=== PATIENT | female | born 1995 | race African-American/Black ===

== ENCOUNTER 2018-06-15 20:00 | Emergency (ER) | payer BC, OTHER ==
[~2018-06-15] VITALS: Ht 162.6 cm; Wt 113.4 kg
[2018-06-15 20:20] VITALS: BP 147/77
[2018-06-15] MEDS ORDERED: SULF1TAB24 PO (20:46)
--- NOTE | 2018-06-15 20:46 | PHYS DOC ---
Past Medical History Past Medical History: No Pertinent History Past Surgical History: No Surgical History Alcohol Use: None Drug Use: None Adult General Chief Complaint Chief Complaint: VAGINAL PROBLEM HPI HPI Patient is a 23 year old female who presents with a painful bump on her labia. She states that she noticed a few days ago and it has gradually worsened. She denies fever, nausea or vomiting. She denies drainage. Review of Systems Review of Systems Constitutional: Denies fever or chills [] Respiratory: Denies cough or shortness of breath [] Cardiovascular: No additional information not addressed in HPI [] GI: Denies abdominal pain, nausea, vomiting, bloody stools or diarrhea [] : Denies dysuria or hematuria [] Musculoskeletal: Denies back pain or joint pain [] Integument: See history of present illness Neurologic: Denies headache, focal weakness or sensory changes [] Endocrine: Denies polyuria or polydipsia [] All other systems were reviewed and found to be within normal limits, except as documented in this note. Allergies Allergies Allergies Coded Allergies Type Severity Reaction Last Updated Verified No Known Drug Allergies 05/06/14 No Physical Exam Physical Exam Constitutional: Well developed, well nourished, no acute distress, non-toxic appearance. [] Cardiovascular:Heart rate regular rhythm, no murmur [] Lungs & Thorax: Bilateral breath sounds clear to auscultation [] Abdomen: Bowel sounds normal, soft, no tenderness, no masses, no pulsatile masses. [] Skin: Warm, dry, no erythema, no rash. [] Back: No tenderness, no CVA tenderness. [] Extremities: No tenderness, no cyanosis, no clubbing, ROM intact, no edema. [] Neurologic: Alert and oriented X 3, normal motor function, normal sensory function, no focal deficits noted. [] Psychologic: Affect normal, judgement normal, mood normal. [] : There is a pea-sized abscess noted to the right labia with induration but no fluctuance Current Patient Data Vital Signs Vital Signs Date Time Temp Pulse Resp B/P (MAP) Pulse Ox O2 Delivery O2 Flow Rate FiO2 06/15/18 20:20 98.2 16 16 147/77 (100) 99 Room Air 98.2 EKG EKG [] Radiology/Procedures Radiology/Procedures [] Course & Med Decision Making Course & Med Decision Making Pertinent Labs and Imaging studies reviewed. (See chart for details) [] Dragon Disclaimer Dragon Disclaimer This electronic medical record was generated, in whole or in part, using a voice recognition dictation system. Departure Departure Impression: Primary Impression: Abscess Disposition: 01 HOME, SELF-CARE Condition: STABLE Referrals: ROBY LEARY (PCP) Patient Instructions: Abscess Additional Instructions: Take the medication as prescribed. Follow-up with your primary care provider or padder cushion for a recheck in 4 days if not improving or return to the emergency department if worsening. Scripts Sulfamethoxazole/Trimethoprim (BACTRIM DS TABLET) 1 Each Tablet 1 TAB PO BID for abscess, #20 TAB Prov: CHRISTIANE HOLM APRN 06/15/18 CHRISTIANE HOLM APRN Jun 15, 2018 20:46
== END 2018-06-15 21:04 | disposition home or self-care (01) ==
LOC: ER 20:00
DX: N76.0 Acute vaginitis (principal)
CPT/HCPCS: 99283

== ENCOUNTER 2019-03-12 23:16 | Emergency (ER) | payer BC ==
[~2019-03-12] VITALS: Ht 165.1 cm; Wt 136.1 kg
[~2019-03-12 23:16] MED LIST: SULF1TAB24 PO
[2019-03-13 00:15] LABS: BASO # 0.1 x10^3/uL (0.0-0.2); BASO % 1 % (0-3); EOS # 0.1 x10^3/uL (0.0-0.7); EOS % 1 % (0-3); HEMATOCRIT 34.5 % (36.0-47.0); HEMOGLOBIN 10.8 g/dL (12.0-15.5); LYMPH # 2.4 x10^3/uL (1.0-4.8); LYMPH % 31 % (24-48); MEAN CORPUSCULAR HEMOGLOBIN 22 pg (25-35); MEAN CORPUSCULAR HGB CONC 31 g/dL (31-37); MEAN CORPUSCULAR VOLUME 69 fL (79-100); MONO # 0.5 x10^3/uL (0.0-1.1); MONO % 7 % (0-9); NEUT # 4.7 x10^3/uL (1.8-7.7); NEUT % 61 % (31-73); PLATELET COUNT 312 x10^3/uL (140-400); RED BLOOD COUNT 4.98 x10^6/uL (3.50-5.40); RED CELL DISTRIBUTION WIDTH 20.3 % (11.5-14.5); WHITE BLOOD COUNT 7.7 x10^3/uL (4.0-11.0)
[2019-03-13 00:28] LABS: CALCIUM 9.1 mg/dL (8.5-10.1); CREATININE 0.9 mg/dL (0.6-1.0); GFR 93.9; POTASSIUM 3.9 mmol/L (3.5-5.1)
[2019-03-13] MEDS ORDERED: fentaNYL PF VIAL 100 MCG/2 ML VIAL IVP ONE (00:30)
[2019-03-13 00:33] LABS: PROTHROMBIN TIME PATIENT 13.1 SEC (11.7-14.0)
[2019-03-13 00:35] LABS: ALBUMIN 3.6 g/dL (3.4-5.0); ALBUMIN/GLOBULIN RATIO 0.8 (1.0-1.7); TOTAL BILIRUBIN 0.2 mg/dL (0.2-1.0); TOTAL PROTEIN 8.4 g/dL (6.4-8.2)
[2019-03-13 00:37] LABS: D-DIMER 0.43 ug/mlFEU (0.00-0.50)
[2019-03-13 00:59] LABS: ANISOCYTOSIS MOD; HYPOCHROMIA MOD; MICROCYTOSIS MARKED
[2019-03-13 01:00] LABS: PLT ESTIMATE ADEQUATE (ADEQUATE)
[2019-03-13 01:24] LABS: BILIRUBIN,URINE NEGATIVE (NEG); CLARITY,URINE CLEAR; COLOR,URINE YELLOW; NITRITE,URINE NEGATIVE (NEG); PROTEIN,URINE NEGATIVE (NEG-TRACE); UROBILINOGEN,URINE 0.2 mg/dL (0.2 mg/dL)
[2019-03-13 01:45] VITALS: BP 134/88
[2019-03-13 01:52] LABS: SQUAMOUS EPITHELIAL CELL,UR MANY /LPF
[2019-03-13 01:53] LABS: AMORPHOUS SEDIMENT,UR PRESENT /HPF; BACTERIA,URINE MODERATE /HPF (0-FEW); WBC,URINE 20-40 /HPF (0-4)
[2019-03-13] MEDS ORDERED: SULF1TAB24 PO (01:56)
--- NOTE | 2019-03-13 02:00 | PHYS DOC ---
Past Medical History Past Medical History: No Pertinent History Past Surgical History: No Surgical History Alcohol Use: None Drug Use: None Adult General Chief Complaint Chief Complaint: BACK PAIN OR INJURY HPI HPI Patient is a 23 year old f with left upper back pain onset while shopping with mom sharp near left scapula hurts to twist move and breathe no trauma no abdo pain no fever has not tried anything for relief. Review of Systems Review of Systems Constitutional: Denies fever or chills [] Eyes: Denies change in visual acuity, redness, or eye pain [] HENT: Denies nasal congestion or sore throat [] Respiratory: Denies cough or shortness of breath [] Cardiovascular: No additional information not addressed in HPI [] Neurologic: Denies headache, focal weakness or sensory changes [] Endocrine: Denies polyuria or polydipsia [] All other systems were reviewed and found to be within normal limits, except as documented in this note. Current Medications Current Medications Current Medications Medications (Trade) Dose Ordered Sig/Jimmie Start Time Stop Time Status Last Admin Dose Admin Fentanyl Citrate (Fentanyl 2ml Vial) 50 mcg 1X ONCE 03/13/19 00:30 03/13/19 00:31 DC 03/13/19 00:15 50 MCG Allergies Allergies Allergies Coded Allergies Type Severity Reaction Last Updated Verified No Known Drug Allergies 05/06/14 No Physical Exam Physical Exam Constitutional: Well developed, obese, no acute distress, non-toxic appearance. [] HENT: Normocephalic, atraumatic, bilateral external ears normal, oropharynx moist, no oral exudates, nose normal. [] Eyes: PERRLA, EOMI, conjunctiva normal, no discharge. [] Neck: Normal range of motion, no tenderness, supple, no stridor. [] Cardiovascular:Heart rate regular rhythm, no murmur [] hr 100 on my eval no murmur Lungs & Thorax: Bilateral breath sounds clear to auscultation [] Abdomen: Bowel sounds normal, soft, no tenderness, no masses, no pulsatile ma sses. [] Skin: Warm, dry, no erythema, no rash. [] Back: reproducible ttp noted on the left upper back. Extremities: No tenderness, no cyanosis, no clubbing, ROM intact, no edema. [] Neurologic: Alert and oriented X 3, normal motor function, normal sensory function, no focal deficits noted. [] Psychologic: Affect normal, judgement normal, mood normal. [] Current Patient Data Vital Signs Vital Signs Date Time Temp Pulse Resp B/P (MAP) Pulse Ox O2 Delivery O2 Flow Rate FiO2 03/13/19 00:15 Room Air 03/12/19 23:19 98.1 125 14 199/97 (131) 98 98.1 Lab Values Laboratory Tests Test 03/13/19 00:03 03/13/19 01:15 White Blood Count 7.7 x10^3/uL (4.0-11.0) Red Blood Count 4.98 x10^6/uL (3.50-5.40) Hemoglobin 10.8 g/dL (12.0-15.5) L Hematocrit 34.5 % (36.0-47.0) L Mean Corpuscular Volume 69 fL (79-100) L Mean Corpuscular Hemoglobin 22 pg (25-35) L Mean Corpuscular Hemoglobin Concent 31 g/dL (31-37) Red Cell Distribution Width 20.3 % (11.5-14.5) H Platelet Count 312 x10^3/uL (140-400) Neutrophils (%) (Auto) 61 % (31-73) Lymphocytes (%) (Auto) 31 % (24-48) Monocytes (%) (Auto) 7 % (0-9) Eosinophils (%) (Auto) 1 % (0-3) Basophils (%) (Auto) 1 % (0-3) Neutrophils # (Auto) 4.7 x10^3/uL (1.8-7.7) Lymphocytes # (Auto) 2.4 x10^3/uL (1.0-4.8) Monocytes # (Auto) 0.5 x10^3/uL (0.0-1.1) Eosinophils # (Auto) 0.1 x10^3/uL (0.0-0.7) Basophils # (Auto) 0.1 x10^3/uL (0.0-0.2) Platelet Estimate Adequate (ADEQUATE) Hypochromasia Mod Anisocytosis Mod Microcytosis Marked Prothrombin Time 13.1 SEC (11.7-14.0) Prothrombin Time INR 1.0 (0.8-1.1) D-Dimer (Estelle) 0.43 ug/mlFEU (0.00-0.50) Maternal Serum HCG Beta Subunit < 1 mIU/mL (0-5) Sodium Level 140 mmol/L (136-145) Potassium Level 3.9 mmol/L (3.5-5.1) Chloride Level 104 mmol/L (98-107) Carbon Dioxide Level 28 mmol/L (21-32) Anion Gap 8 (6-14) Blood Urea Nitrogen 11 mg/dL (7-20) Creatinine 0.9 mg/dL (0.6-1.0) Estimated GFR (Cockcroft-Gault) 93.9 BUN/Creatinine Ratio 12 (6-20) Glucose Level 99 mg/dL (70-99) Calcium Level 9.1 mg/dL (8.5-10.1) Total Bilirubin 0.2 mg/dL (0.2-1.0) Aspartate Amino Transferase (AST) 21 U/L (15-37) Alanine Aminotransferase (ALT) 37 U/L (14-59) Alkaline Phosphatase 98 U/L (46-116) Troponin I Quantitative < 0.017 ng/mL (0.000-0.055) Total Protein 8.4 g/dL (6.4-8.2) H Albumin 3.6 g/dL (3.4-5.0) Albumin/Globulin Ratio 0.8 (1.0-1.7) L Urine Collection Type Unknown Urine Color Yellow Urine Clarity Clear Urine pH 6.0 Urine Specific [place] 1.015 Urine Protein Negative mg/dL (NEG-TRACE) Urine Glucose (UA) Negative mg/dL (NEG) Urine Ketones (Stick) Negative mg/dL (NEG) Urine Blood Large (NEG) Urine Nitrite Negative (NEG) Urine Bilirubin Negative (NEG) Urine Urobilinogen Dipstick 0.2 mg/dL (0.2 mg/dL) Urine Leukocyte Esterase Small (NEG) Urine RBC 11-20 /HPF (0-2) Urine WBC 20-40 /HPF (0-4) Urine Squamous Epithelial Cells Many /LPF Urine Amorphous Sediment Present /HPF Urine Bacteria Moderate /HPF (0-FEW) Urine Mucus Slight /LPF Laboratory Tests 03/13/19 00:03 Laboratory Tests 03/13/19 00:03 EKG EKG nsr rate 81 poor baseline i believe it is sinus no stemi[] Radiology/Procedures Radiology/Procedures [] Impressions: my interp of cxr was neg acute Course & Med Decision Making Course & Med Decision Making Pertinent Labs and Imaging studies reviewed. (See chart for details) []ddimer neg reproducible upper back neg initial tachy and hypertension improved significantly when she calmed down (hx of anxiety per mom) u/a positigve will treat although pain is higher than kidneys so not sure that this is causing acute symptoms. return prec discussed pt voiced understanding. Dragon Disclaimer Dragon Disclaimer This electronic medical record was generated, in whole or in part, using a voice recognition dictation system. Departure Departure Impression: Primary Impression: Urinary tract infection Disposition: HOME, SELF-CARE Condition: STABLE Patient Instructions: Urinary Tract Infection, [id number] Scripts Sulfamethoxazole/Trimethoprim (BACTRIM DS TABLET) 1 Each Tablet 1 TAB PO BID for 10 Days, #20 TAB 0 Refills Prov: REKHA BONDS MD 03/13/19 REKHA BONDS MD Mar 13, 2019 02:00
--- NOTE | 2019-03-13 08:03 | RAD ---
Study: PORTABLE CHEST 1V Indication: Chest pain. Comparison: None. Findings: The cardiomediastinal silhouette appears prominent size however this may be in part related to technique and low lung volumes. No pneumothorax or layering pleural effusion. The left lung base is not well evaluated due to poor inspiratory excursion. No infiltrate seen throughout the adequately assess lungs. Impression: No acute radiographic abnormality of the chest. Apparent prominence of the cardiomediastinal silhouette is favored mostly related to low lung volumes and portable technique. Electronically signed by: KEILY NGUYEN MD (03/13/2019 8:00 AM) [facility]
--- NOTE | 2019-03-13 08:23 | EKG ---
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
== END 2019-03-13 01:58 | disposition home or self-care (01) ==
LOC: ER 23:16
DX: N39.0 Urinary tract infection, site not specified (principal); M54.6 Pain in thoracic spine
CPT/HCPCS: 36415; 71045; 80053; 81001; 84484; 84702; 85025; 85379; 85610; 87086; 93005; 96374; 99285; J3010

== ENCOUNTER 2019-07-24 21:51 | Emergency (ER) | payer BC ==
[~2019-07-24] VITALS: Ht 162.6 cm; Wt 136.0 kg
[2019-07-24 22:05] LABS: BILIRUBIN,URINE NEGATIVE (NEG); CLARITY,URINE CLOUDY; COLOR,URINE YELLOW; NITRITE,URINE NEGATIVE (NEG); PROTEIN,URINE 30 mg/dL (NEG-TRACE); UROBILINOGEN,URINE 0.2 mg/dL (0.2 mg/dL)
[2019-07-24 22:10] LABS: SQUAMOUS EPITHELIAL CELL,UR MANY /LPF
[2019-07-24 22:11] LABS: BACTERIA,URINE FEW /HPF (0-FEW); RBC,URINE 0 /HPF (0-2)
[2019-07-24] MEDS ORDERED: IV NORMAL SALINE 1000ML BAG 1,000 ML IV ONE (22:30)
[2019-07-24] MEDS ORDERED: KETOROLAC 15 MG/ML VIAL. IVP ONE (22:30)
[2019-07-24 22:43] LABS: BASO # 0.1 x10^3/uL (0.0-0.2); BASO % 1 % (0-3); EOS # 0.1 x10^3/uL (0.0-0.7); EOS % 1 % (0-3); HEMATOCRIT 34.9 % (36.0-47.0); HEMOGLOBIN 11.3 g/dL (12.0-15.5); LYMPH % 32 % (24-48); MEAN CORPUSCULAR HEMOGLOBIN 24 pg (25-35); MEAN CORPUSCULAR HGB CONC 33 g/dL (31-37); MEAN CORPUSCULAR VOLUME 73 fL (79-100); MONO # 0.5 x10^3/uL (0.0-1.1); MONO % 6 % (0-9); NEUT # 5.8 x10^3/uL (1.8-7.7); NEUT % 61 % (31-73); PLATELET COUNT 286 x10^3/uL (140-400); RED BLOOD COUNT 4.77 x10^6/uL (3.50-5.40); WHITE BLOOD COUNT 9.4 x10^3/uL (4.0-11.0)
--- NOTE | 2019-07-24 22:47 | PHYS DOC ---
Past Medical History Past Medical History: No Pertinent History Additional Past Surgical Histo: UTERINE POLYPS Smoking Status: Never Smoker Alcohol Use: None Drug Use: None Adult General Chief Complaint Chief Complaint: FLANK PAIN HPI HPI 24-year-old female presents with report of sharp intermittent right flank pain which started today. Patient reports will occur out of the blue. Denies known tr auma. Denies rash. Denies lifting anything heavy. Denies dysuria or hematuria. Denies family history of kidney stones. Denies vaginal bleeding or discharge. She reports she has not taken anything to help with the pain. Reports pain is currently 4 out of 10. Reports pain does not get better or worse with movement Review of Systems Review of Systems Constitutional: Denies fever or chills Eyes: Denies redness or eye pain HENT: Denies nasal congestion or sore throat Respiratory: Denies cough or shortness of breath Cardiovascular: Denies chest pain or palpitations GI: Denies abdominal pain, nausea, or vomiting : Denies dysuria or hematuria Musculoskeletal: Reports right flank pain; denies extremity pain Integument: Denies rash or skin lesions Neurologic: Denies headache, focal weakness or sensory changes Complete systems were reviewed and found to be within normal limits, except as documented in this note. Current Medications Current Medications Current Medications Medications (Trade) Dose Ordered Sig/Jimmie Start Time Stop Time Status Last Admin Dose Admin Ketorolac Tromethamine (Toradol 15mg Vial) 15 mg 1X ONCE 07/24/19 22:30 07/24/19 22:31 DC 07/24/19 22:44 15 MG Sodium Chloride 1,000 ml @ 1,000 mls/hr 1X ONCE 07/24/19 22:30 07/24/19 23:29 07/24/19 22:44 1,000 MLS/HR Allergies Allergies Allergies Coded Allergies Type Severity Reaction Last Updated Verified No Known Drug Allergies 05/06/14 No Physical Exam Physical Exam Constitutional: Well developed, obese, no acute distress, non-toxic appearance HENT: Normocephalic, atraumatic Eyes: Conjunctiva normal, no discharge Neck: Normal range of motion, no tenderness, supple Cardiovascular: Heart rate normal, regular rhythm Lungs & Thorax: No respiratory distress, equal chest rise and fall Abdomen: Soft, no tenderness, no guarding/rebound tenderness, distention. Skin: Warm, dry, no erythema, no rash Back: No tenderness, no CVA tenderness Extremities: No tenderness, ROM intact, no edema Neurologic: Alert and oriented X 3, normal motor function, normal sensory funct ion, no focal deficits noted Psychologic: Affect normal, judgment normal Current Patient Data Vital Signs Vital Signs Date Time Temp Pulse Resp B/P (MAP) Pulse Ox O2 Delivery O2 Flow Rate FiO2 07/24/19 22:04 97.6 110 16 152/89 (110) 97 Room Air 97.6 Lab Values Laboratory Tests Test 07/24/19 22:00 07/24/19 22:33 Urine Collection Type Unknown Urine Color Yellow Urine Clarity Cloudy Urine pH 6.0 (<5.0-8.0) Urine Specific [place] 1.010 (1.000-1.030) Urine Protein 30 mg/dL (NEG-TRACE) Urine Glucose (UA) Negative mg/dL (NEG) Urine Ketones (Stick) Negative mg/dL (NEG) Urine Blood Negative (NEG) Urine Nitrite Negative (NEG) Urine Bilirubin Negative (NEG) Urine Urobilinogen Dipstick 0.2 mg/dL (0.2 mg/dL) Urine Leukocyte Esterase Negative (NEG) Urine RBC 0 /HPF (0-2) Urine WBC 5-10 /HPF (0-4) Urine Squamous Epithelial Cells Many /LPF Urine Bacteria Few /HPF (0-FEW) Urine Mucus Slight /LPF POC Urine HCG, Qualitative Hcg negative (Negative) White Blood Count 9.4 x10^3/uL (4.0-11.0) Red Blood Count 4.77 x10^6/uL (3.50-5.40) Hemoglobin 11.3 g/dL (12.0-15.5) L Hematocrit 34.9 % (36.0-47.0) L Mean Corpuscular Volume 73 fL (79-100) L Mean Corpuscular Hemoglobin 24 pg (25-35) L Mean Corpuscular Hemoglobin Concent 33 g/dL (31-37) Red Cell Distribution Width 17.0 % (11.5-14.5) H Platelet Count 286 x10^3/uL (140-400) Neutrophils (%) (Auto) 61 % (31-73) Lymphocytes (%) (Auto) 32 % (24-48) Monocytes (%) (Auto) 6 % (0-9) Eosinophils (%) (Auto) 1 % (0-3) Basophils (%) (Auto) 1 % (0-3) Neutrophils # (Auto) 5.8 x10^3/uL (1.8-7.7) Lymphocytes # (Auto) 3.0 x10^3/uL (1.0-4.8) Monocytes # (Auto) 0.5 x10^3/uL (0.0-1.1) Eosinophils # (Auto) 0.1 x10^3/uL (0.0-0.7) Basophils # (Auto) 0.1 x10^3/uL (0.0-0.2) Sodium Level 139 mmol/L (136-145) Potassium Level 3.8 mmol/L (3.5-5.1) Chloride Level 104 mmol/L (98-107) Carbon Dioxide Level 27 mmol/L (21-32) Anion Gap 8 (6-14) Blood Urea Nitrogen 8 mg/dL (7-20) Creatinine 0.9 mg/dL (0.6-1.0) Estimated GFR (Cockcroft-Gault) 93.1 BUN/Creatinine Ratio 9 (6-20) Glucose Level 95 mg/dL (70-99) Calcium Level 8.8 mg/dL (8.5-10.1) Total Bilirubin 0.3 mg/dL (0.2-1.0) Aspartate Amino Transferase (AST) 18 U/L (15-37) Alanine Aminotransferase (ALT) 38 U/L (14-59) Alkaline Phosphatase 87 U/L (46-116) Total Protein 7.2 g/dL (6.4-8.2) Albumin 3.3 g/dL (3.4-5.0) L Albumin/Globulin Ratio 0.8 (1.0-1.7) L Lipase 100 U/L (73-393) Laboratory Tests 07/24/19 22:33 Laboratory Tests 07/24/19 22:33 EKG EKG [] Radiology/Procedures Radiology/Procedures PROCEDURE: CT ABDOMEN PELVIS WO CONTRAST PQRS Compliance Statement: One or more of the following individualized dose reduction techniques were utilized for this examination: 1. Automated exposure control 2. Adjustment of the mA and/or kV according to patient size 3. Use of iterative reconstruction technique CT abdomen/pelvis without contrast 07/24/2019 10:34 PM INDICATION: Right flank pain COMPARISON: None available TECHNIQUE: Multiple axial CT images of the abdomen and pelvis were obtained without intravenous contrast. Coronal and sagittal reformats are provided. FINDINGS: Visualized portions of the lung bases are clear. Heart size is within normal limits. Evaluation of the solid abdominal viscera is limited by lack of intravenous contrast. No suspicious hepatic masses are identified. Spleen, bilateral adrenal glands, and pancreas are normal in appearance. Gallbladder is present without adjacent inflammatory changes. The abdominal aorta is normal in course and caliber. There are no pathologically enlarged lymph nodes in the abdomen and pelvis. There is no abdominal free fluid. There is no free intraperitoneal air. Small and large bowel are normal in caliber. There is no evidence for bowel obstruction. There are no pericolonic inflammatory changes. A normal, nondilated appendix is visualized without adjacent inflammatory changes. IUD is in appropriate position. Urinary bladder is within normal limits given degree of distention. The kidneys are relatively symmetric in appearance. There is no suspicious renal mass within the limitations of a noncontrast examination. There is no hydronephrosis. There are no calculi within the kidneys, ureters or urinary bladder. No suspicious osseous normality. IMPRESSION: 1. No evidence for obstructive uropathy. 2. Appendix is normal in appearance. 3. IUD is present in appropriate position. Electronically signed by: Jeanne Whiteside MD (07/24/2019 10:58 PM) [facility] Course & Med Decision Making Course & Med Decision Making Pertinent Labs and Imaging studies reviewed. (See chart for details) Patient presents with intermittent right flank pain without is treated trauma. Pain does not reproducible on palpation or with movement. Pain addressed with IV ketorolac. IV fluid hydration provided. Labs obtained and posted to chart. UA appears contaminated without significant signs of infection. CT abdomen/pelvis without acute process. Patient stable for discharge with outpatient follow-up with PCP. Discussed findings and plan with patient, who acknowledges understanding and agreement. Dragon Disclaimer Dragon Disclaimer This electronic medical record was generated, in whole or in part, using a voice recognition dictation system. Departure Departure Impression: Primary Impression: Flank pain Disposition: HOME, SELF-CARE Condition: STABLE Referrals: ROBY LEARY (PCP) Patient Instructions: Flank Pain, [id number] Scripts Orphenadrine Citrate (ORPHENADRINE CITRATE) 100 Mg Tablet.er 100 MG PO BID PRN for MUSCLE PAIN, #14 TAB Prov: LIUDMILA RODRIGUEZ DO 07/24/19 Naproxen (NAPROXEN) 375 Mg Tablet 375 MG PO TID PRN PRN for PAIN, #20 TAB Prov: LIUDMILA RODRIGUEZ DO 07/24/19 LIUDMILA RODRIGUEZ DO Jul 24, 2019 22:46
[2019-07-24 22:49] LABS: CALCIUM 8.8 mg/dL (8.5-10.1); CREATININE 0.9 mg/dL (0.6-1.0); GFR 93.1; POTASSIUM 3.8 mmol/L (3.5-5.1)
[2019-07-24 22:55] LABS: ALBUMIN 3.3 g/dL (3.4-5.0); ALBUMIN/GLOBULIN RATIO 0.8 (1.0-1.7); TOTAL BILIRUBIN 0.3 mg/dL (0.2-1.0); TOTAL PROTEIN 7.2 g/dL (6.4-8.2)
--- NOTE | 2019-07-24 23:00 | RAD ---
PQRS Compliance Statement: One or more of the following individualized dose reduction techniques were utilized for this examination: 1. Automated exposure control 2. Adjustment of the mA and/or kV according to patient size 3. Use of iterative reconstruction technique CT abdomen/pelvis without contrast 07/24/2019 10:34 PM INDICATION: Right flank pain COMPARISON: None available TECHNIQUE: Multiple axial CT images of the abdomen and pelvis were obtained without intravenous contrast. Coronal and sagittal reformats are provided. FINDINGS: Visualized portions of the lung bases are clear. Heart size is within normal limits. Evaluation of the solid abdominal viscera is limited by lack of intravenous contrast. No suspicious hepatic masses are identified. Spleen, bilateral adrenal glands, and pancreas are normal in appearance. Gallbladder is present without adjacent inflammatory changes. The abdominal aorta is normal in course and caliber. There are no pathologically enlarged lymph nodes in the abdomen and pelvis. There is no abdominal free fluid. There is no free intraperitoneal air. Small and large bowel are normal in caliber. There is no evidence for bowel obstruction. There are no pericolonic inflammatory changes. A normal, nondilated appendix is visualized without adjacent inflammatory changes. IUD is in appropriate position. Urinary bladder is within normal limits given degree of distention. The kidneys are relatively symmetric in appearance. There is no suspicious renal mass within the limitations of a noncontrast examination. There is no hydronephrosis. There are no calculi within the kidneys, ureters or urinary bladder. No suspicious osseous normality. IMPRESSION: 1. No evidence for obstructive uropathy. 2. Appendix is normal in appearance. 3. IUD is present in appropriate position. Electronically signed by: Jeanne Whiteside MD (07/24/2019 10:58 PM) [facility]
[2019-07-24] MEDS ORDERED: NAPR-695 PO (23:05)
[2019-07-24] MEDS ORDERED: ORPH100T PO (23:05)
[2019-07-24 23:06] VITALS: BP 145/74
== END 2019-07-24 23:18 | disposition home or self-care (01) ==
LOC: ER 21:51
DX: R10.9 Unspecified abdominal pain (principal); Z98.890 Other specified postprocedural states
CPT/HCPCS: 36415; 74176; 80053; 81001; 81025; 83690; 85025; 87086; 96374; 99284; J1885; J7030

== ENCOUNTER 2020-01-25 13:56 | Emergency (ER) | payer BC ==
[~2020-01-25 13:56] MED LIST changes: +NAPR-695 PO; +ORPH100T PO
== END 2020-01-25 14:22 | disposition left against medical advice (07) ==
LOC: ER 13:56
DX: R10.2 Pelvic and perineal pain (principal); Z53.21 Procedure and treatment not carried out due to patient leaving prior to being seen by health care provider

== ENCOUNTER 2020-12-09 08:10 | Emergency (ER) | payer BC ==
[~2020-12-09] VITALS: Ht 162.6 cm; Wt 136.3 kg
[2020-12-09 08:38] LABS: BILIRUBIN,URINE NEGATIVE (NEG); CLARITY,URINE CLOUDY; COLOR,URINE YELLOW; NITRITE,URINE NEGATIVE (NEG); PROTEIN,URINE NEGATIVE (NEG-TRACE); UROBILINOGEN,URINE 0.2 mg/dL (0.2 mg/dL)
--- NOTE | 2020-12-09 08:39 | PHYS DOC ---
Past Medical History Past Medical History: No Pertinent History Past Surgical History: Other Additional Past Surgical Histo: POLYPS REMOVED FROM UTERUS Smoking Status: Never Smoker Alcohol Use: None Drug Use: None General Adult EDM: Chief Complaint: FLANK PAIN HPI: HPI: 25-year-old female presents to the emergency department complaining of right- sided flank pain that is intermittent, moderate in severity, started last night, does not radiate. She reports having pain similar to this in the past. She denies any acute injury. She further denies any urinary changes, overlying rash, fever, chills, cough, shortness of breath, abdominal pain, vaginal discharge, vaginal bleeding. Her last menstrual cycle was last month Review of Systems: Review of Systems: You of systems is otherwise negative except for what was mentioned in the HPI Heart Score: C/O Chest Pain: No Allergies: Allergies: Allergies Coded Allergies Type Severity Reaction Last Updated Verified No Known Drug Allergies 05/06/14 No Physical Exam: PE: Constitutional: No acute distress, non-toxic appearance. HENT: Atraumatic, bilateral external ears normal, nose normal. Eyes: PERRLA, EOMI, conjunctiva normal, no discharge. Neck: Normal range of motion, supple, no stridor. Cardiovascular: Heart rate regular rhythm. 2+ radial pulses Lungs & Thorax: No respiratory distress, symmetrical expansion. Bilateral breath sounds clear to auscultation Abdomen: Soft, no tenderness no CVA tenderness Skin: Warm, dry. Extremities: No tenderness, no cyanosis, ROM intact, no edema. Neurologic: Alert and oriented X 3, normal motor function, normal sensory function, no focal deficits noted. Non ataxic gait. GCS 15. Psychologic: Affect normal, judgment normal, mood normal. Current Patient Data: Labs: Laboratory Tests Test 12/09/20 08:20 12/09/20 08:29 12/09/20 08:39 Urine Collection Type Void Urine Color Yellow Urine Clarity Cloudy Urine pH 6.0 (<5.0-8.0) Urine Specific [place] <=1.005 (1.000-1.030) Urine Protein Negative mg/dL (NEG-TRACE) Urine Glucose (UA) Negative mg/dL (NEG) Urine Ketones (Stick) Negative mg/dL (NEG) Urine Blood Moderate (NEG) Urine Nitrite Negative (NEG) Urine Bilirubin Negative (NEG) Urine Urobilinogen Dipstick 0.2 mg/dL (0.2 mg/dL) Urine Leukocyte Esterase Moderate (NEG) Urine RBC 1-2 /HPF (0-2) Urine WBC 5-10 /HPF (0-4) Urine Squamous Epithelial Cells Many /LPF Urine Bacteria Many /HPF (0-FEW) Bedside Urine HCG, Qualitative Hcg negative (Negative) White Blood Count 6.5 x10^3/uL (4.0-11.0) Red Blood Count 3.94 x10^6/uL (3.50-5.40) Hemoglobin 8.8 g/dL (12.0-15.5) Hematocrit 27.2 % (36.0-47.0) Mean Corpuscular Volume 69 fL (79-100) Mean Corpuscular Hemoglobin 22 pg (25-35) Mean Corpuscular Hemoglobin Concent 32 g/dL (31-37) Red Cell Distribution Width 17.3 % (11.5-14.5) Platelet Count 373 x10^3/uL (140-400) Neutrophils (%) (Auto) 65 % (31-73) Lymphocytes (%) (Auto) 26 % (24-48) Monocytes (%) (Auto) 7 % (0-9) Eosinophils (%) (Auto) 1 % (0-3) Basophils (%) (Auto) 1 % (0-3) Neutrophils # (Auto) 4.3 x10^3/uL (1.8-7.7) Lymphocytes # (Auto) 1.7 x10^3/uL (1.0-4.8) Monocytes # (Auto) 0.4 x10^3/uL (0.0-1.1) Eosinophils # (Auto) 0.1 x10^3/uL (0.0-0.7) Basophils # (Auto) 0.1 x10^3/uL (0.0-0.2) Platelet Estimate Adequate (ADEQUATE) Anisocytosis Slight Sodium Level 140 mmol/L (136-145) Potassium Level 3.9 mmol/L (3.5-5.1) Chloride Level 105 mmol/L (98-107) Carbon Dioxide Level 23 mmol/L (21-32) Anion Gap 12 (6-14) Blood Urea Nitrogen 7 mg/dL (7-20) Creatinine 0.8 mg/dL (0.6-1.0) Estimated GFR (Cockcroft-Gault) 105.8 BUN/Creatinine Ratio 9 (6-20) Glucose Level 100 mg/dL (70-99) Calcium Level 8.9 mg/dL (8.5-10.1) Total Bilirubin 0.3 mg/dL (0.2-1.0) Aspartate Amino Transf (AST/SGOT) 18 U/L (15-37) Alanine Aminotransferase (ALT/SGPT) 34 U/L (14-59) Alkaline Phosphatase 72 U/L (46-116) Total Protein 7.8 g/dL (6.4-8.2) Albumin 3.2 g/dL (3.4-5.0) Albumin/Globulin Ratio 0.7 (1.0-1.7) Lipase 97 U/L (73-393) Vital Signs: Vital Signs Date Time Temp Pulse Resp B/P (MAP) Pulse Ox O2 Delivery O2 Flow Rate FiO2 12/09/20 08:20 98.7 99 20 132/84 99 Room Air 98.7 Radiology/Procedures: Radiology/Procedures: EXAM: XR CHEST 1V 12/09/2020 9:20 AM CLINICAL INDICATION: Right flank pain COMPARISON: Chest radiograph 03/12/2019 TECHNIQUE: AP upright view of the chest FINDINGS: The cardiac silhouette is normal. Lungs are adequately expanded and clear. No pleural effusion or pneumothorax. No acute osseous abnormality. IMPRESSION: Normal chest radiograph. Electronically signed by: Mindy Lynch MD (12/09/2020 9:26 AM) Course & Med Decision Making: Course & Med Decision Making We will treat the patient for pyelonephritis given her flank pain, bacteria in the urine patient given a dose of Rocephin in the emergency department, will start the patient on Keflex for 7 days. Urine culture is pending. Rest of work-up is unremarkable. Patient appears very well clinically. Heart rate is 92 upon discharge Departure Departure Impression: Primary Impression: Pyelonephritis Disposition: 01 HOME / SELF CARE / HOMELESS Condition: STABLE Referrals: ROBY LEARY (PCP) Patient Instructions: Pyelonephritis, Adult, [id number] Additional Instructions: You were seen for a urinary tract infection which is likely ascended up to the kidney and caused an infection called pyelonephritis. Please continue to take the antibiotics as prescribed. You should return to the ED if you develop worsening pain, fever, flank pain, inability to eat or drink, or any other new or concerning symptoms. You have been given a prescription for flex. This medicine is an antibiotic for pyelonephritis. Please take as prescribed for the full course of the prescription. Do not stop taking the medicine early if you feel better, as this could risk building antibiotic resistance and may put you at risk for a more harmful infection later. The most common side effect of antibiotics include nausea, vomiting, diarrhea and rash. Please come to be evaluated if you develop any symptoms that are concerning to you. One major adverse effect of antibiotics is the development of a diarrheal illness called c. diff colitis, if you develop an excessive amount of diarrhea or are concerned about this please return to the ER or consult a physician. Scripts Cephalexin (CEPHALEXIN) 500 Mg Tablet 1 TAB PO QID, #40 TAB Prov: REKHA CLOUD DO 12/09/20 REKHA CLOUD DO Dec 09, 2020 08:39
[2020-12-09 08:52] LABS: BACTERIA,URINE MANY /HPF (0-FEW)
[2020-12-09 08:52] LABS: BASO # 0.1 x10^3/uL (0.0-0.2); BASO % 1 % (0-3); EOS # 0.1 x10^3/uL (0.0-0.7); EOS % 1 % (0-3); HEMATOCRIT 27.2 % (36.0-47.0); HEMOGLOBIN 8.8 g/dL (12.0-15.5); LYMPH # 1.7 x10^3/uL (1.0-4.8); LYMPH % 26 % (24-48); MEAN CORPUSCULAR HEMOGLOBIN 22 pg (25-35); MEAN CORPUSCULAR HGB CONC 32 g/dL (31-37); MEAN CORPUSCULAR VOLUME 69 fL (79-100); MONO # 0.4 x10^3/uL (0.0-1.1); MONO % 7 % (0-9); NEUT # 4.3 x10^3/uL (1.8-7.7); NEUT % 65 % (31-73); PLATELET COUNT 373 x10^3/uL (140-400); RED BLOOD COUNT 3.94 x10^6/uL (3.50-5.40); RED CELL DISTRIBUTION WIDTH 17.3 % (11.5-14.5); WHITE BLOOD COUNT 6.5 x10^3/uL (4.0-11.0)
[2020-12-09 09:02] LABS: CALCIUM 8.9 mg/dL (8.5-10.1); CREATININE 0.8 mg/dL (0.6-1.0); GFR 105.8; POTASSIUM 3.9 mmol/L (3.5-5.1)
[2020-12-09 09:09] LABS: ALBUMIN 3.2 g/dL (3.4-5.0); ALBUMIN/GLOBULIN RATIO 0.7 (1.0-1.7); TOTAL BILIRUBIN 0.3 mg/dL (0.2-1.0); TOTAL PROTEIN 7.8 g/dL (6.4-8.2)
[2020-12-09] MEDS ORDERED: KETOROLAC 15 MG/ML VIAL. IM ONE (09:15)
--- NOTE | 2020-12-09 09:28 | RAD ---
EXAM: XR CHEST 1V 12/09/2020 9:20 AM CLINICAL INDICATION: Right flank pain COMPARISON: Chest radiograph 03/12/2019 TECHNIQUE: AP upright view of the chest FINDINGS: The cardiac silhouette is normal. Lungs are adequately expanded and clear. No pleural effu madie or pneumothorax. No acute osseous abnormality. IMPRESSION: Normal chest radiograph. Electronically signed by: Mindy Lynch MD (12/09/2020 9:26 AM) [id number]
[2020-12-09] MEDS ORDERED: IV NORMAL SALINE 1000ML BAG 1,000 ML IV ONE (09:45)
[2020-12-09] MEDS ORDERED: cefTRIAXone IV Push 1 GM VIAL. IVP ONE (09:45)
[2020-12-09 09:53] LABS: ANISOCYTOSIS SLIGHT; PLT ESTIMATE ADEQUATE (ADEQUATE)
[2020-12-09] MEDS ORDERED: CEPH500T PO (09:57)
[2020-12-09 10:33] VITALS: BP 184/89
== END 2020-12-09 10:33 | disposition home or self-care (01) ==
LOC: ER 08:10
DX: N12 Tubulo-interstitial nephritis, not specified as acute or chronic (principal)
CPT/HCPCS: 36415; 71045; 80053; 81001; 81025; 83690; 85025; 87086; 96361; 96372; 96374; 99284; J0696; J1885; J7030

== ENCOUNTER 2021-06-22 09:23 | Inpatient (IN) | payer BC, OTHER ==
[2021-06-22] VITALS (13 sets, daily range): BP systolic 103–148; BP diastolic 55–91
[~2021-06-22] VITALS: Ht 162.6 cm; Wt 143.0 kg
[~2021-06-22 09:23] MED LIST changes: +CEPH500T PO
[2021-06-22] MEDS ORDERED: ASPIRIN CHEWABLE 81 MG TABLET. PO ONE (09:45)
--- NOTE | 2021-06-22 09:46 | PHYS DOC ---
Past Medical History Past Medical History: No Pertinent History Past Surgical History: Other Additional Past Surgical Histo: POLYPS REMOVED FROM UTERUS Smoking Status: Never Smoker Alcohol Use: None Drug Use: None General Adult HPI: HPI: Patient is a 26 year old female who presents with yesterday at 9:30 in the morning she been having left-sided burning/intermittent sharpness chest pain that will go to the right side of the chest and sometimes down the left arm. She states nothing makes it worse or better. She is when it started she was just sitting there. She denies doing any kind of heavy lifting or exercise lately. Currently rates her pain about a 5 out of 10. Did not take any pain medications for this. Patient is currently on Macrobid antibiotic for the last 2 days for UTI. Denies diaphoresis, shortness of breath, fever, cough, abdominal pain, nausea, vomiting, diarrhea, headache, dizziness, numbness or tingling, vision change. Not on any kind of control, does not smoke, no recent travel, no recent surgery. History of morbid obesity, uterine polyps, GERD. Review of Systems: Review of Systems: Constitutional: Denies fever or chills. [] Eyes: Denies change in visual acuity. [] HENT: Denies nasal congestion or sore throat. [] Respiratory: Denies cough or shortness of breath. [] Cardiovascular: + chest pain or denies edema. [] GI: Denies abdominal pain, nausea, vomiting, bloody stools or diarrhea. [] : Denies dysuria. [] Musculoskeletal: Denies back pain or joint pain. + Left arm pain [] Integument: Denies rash. [] Neurologic: Denies headache, focal weakness or sensory changes. [] Endocrine: Denies polyuria or polydipsia. [] Lymphatic: Denies swollen glands. [] Psychiatric: Denies depression or anxiety. [] Heart Score: C/O Chest Pain: Yes HEART Score for Chest Pain: HEART Score for Chest Pain Response (Comments) Value History Slighlty/Non-Suspicious 0 ECG Normal 0 Age < 45 0 Risk Factors 1 or 2 Risk Factors 1 Troponin < Normal Limit 0 Total 1 Risk Factors: Risk Factors: DM, Current or recent (<one month) smoker, HTN, HLP, family history of CAD, obesity. Risk Scores: Score 0 - 3: 2.5% MACE over next 6 weeks - Discharge Home Score 4 - 6: 20.3% MACE over next 6 weeks - Admit for Clinical Observation Score 7 - 10: 72.7% MACE over next 6 weeks - Early Invasive Strategies Current Medications: Current Medications Medications (Trade) Dose Ordered Sig/Jimmie Start Time Stop Time Status Last Admin Dose Admin Aspirin (Aspirin Chewable) 324 mg 1X ONCE 06/22/21 09:45 06/22/21 09:46 UNV Allergies: Allergies: Allergies Coded Allergies Type Severity Reaction Last Updated Verified No Known Drug Allergies 05/06/14 No Physical Exam: PE: Constitutional: Well developed, well nourished, no acute distress, non-toxic appearance. [] HENT: Normocephalic, atraumatic, bilateral external ears normal, oropharynx moist, no oral exudates, nose normal. [] Eyes: PERRLA, EOMI, conjunctiva normal, no discharge. [] Neck: Normal range of motion, no tenderness, supple, no stridor. [] Cardiovascular:Heart rate regular rhythm, no murmur [] Lungs & Thorax: Bilateral breath sounds clear to auscultation [] Abdomen: Bowel sounds normal, soft, no tenderness, no masses, no pulsatile masses. [] Skin: Warm, dry, no erythema, no rash. [] Back: No tenderness, no CVA tenderness. [] Extremities: No tenderness, no cyanosis, no clubbing, ROM intact, no edema. [] Neurologic: Alert and oriented X 3, normal motor function, normal sensory function, no focal deficits noted. [] Psychologic: Affect normal, judgement normal, mood normal. [] Normal physical exam EKG: EK and read by Dr. Daley as sinus rhythm and no STEMI Radiology/Procedures: Radiology/Procedures: [] Impression: [facility] [address] [place], [place] [id number] IMAGING REPORT Signed PATIENT: DEEP ORTIZ ACCOUNT: [id number] : 1995 LOCATION: ER AGE: 26 SEX: F EXAM STATUS: REG ER ORD. PHYSICIAN: CLIF WHEELER APRN REASON: CHEST PAIN PROCEDURE: PORTABLE CHEST 1V Study: XR CHEST 1V Indication: Chest pain. Comparison: 12/09/2020 Findings: Low lung volumes with bronchovascular crowding. Unchanged cardiomediastinal silhouette and jose. No confluent airspace infiltrate, pleural effusion or pneum othorax. Impression: No acute radiographic abnormality of the chest. No relevant change from the 12/09/2020 comparison. Electronically signed by: KEILY NGUYEN MD (06/22/2021 10:15 AM) [facility] DICTATED and SIGNED BY: KEILY NGUYEN MD DATE: 06/22/21 [id number] 0 Course & Med Decision Making: Course & Med Decision Making Pertinent Labs and Imaging studies reviewed. (See chart for details) See HPI. PERC 0. Skin pink warm and dry. Alert and oriented x4. Ambulatory steady gait. Skin pink warm and dry. Pain is not reproducible. No extremity tenderness or edema. No extremity weakness. Radial pulses strong present. Cap refill less than 2 seconds. Lungs are clear to auscultation all lobes. Afebrile. No respiratory distress. Patient's hemoglobin is down to 6.2. Patient states that she does have heavy periods and does have anemia of which she failed to tell us in her past medical history. She states gynecology has not done anything about this in the past. She states she has had blood transfusions in the past. She is not currently on her period. I have ordered 2 units of blood for her. Patient to be admitted to hospitalist. [] Cyn Disclaimer: Cyn Disclaimer: This electronic medical record was generated, in whole or in part, using a voice recognition dictation system. Departure Departure Impression: Primary Impression: Low hemoglobin Disposition: ADMITTED INPATIENT Admitting Physician: ANNALISA Condition: STABLE Referrals: CINDY RADFORD MD (PCP) CLIF WHEELER APRN Jun 22, 2021 09:46
[2021-06-22 10:13] LABS: BILIRUBIN,URINE NEGATIVE (NEG); CLARITY,URINE HAZY; COLOR,URINE YELLOW; NITRITE,URINE NEGATIVE (NEG); PROTEIN,URINE NEGATIVE (NEG-TRACE); UROBILINOGEN,URINE 0.2 mg/dL (0.2 mg/dL)
[2021-06-22 10:14] LABS: BACTERIA,URINE MODERATE /HPF (0-FEW); BARBITURATES NEG (NEG); BENZODIAZEPINES NEG (NEG); CANNABINOIDS NEG (NEG); COCAINE NEG (NEG); METHADONE NEG (NEG); OPIATES NEG (NEG); PHENCYCLIDINE NEG (NEG); RBC,URINE 0 /HPF (0-2)
[2021-06-22 10:15] LABS: AMPHETAMINE/METHAMPHETAMINE NEG (NEG)
--- NOTE | 2021-06-22 10:18 | RAD ---
Study: XR CHEST 1V Indication: Chest pain. Comparison: 12/09/2020 Findings: Low lung volumes with bronchovascular crowding. Unchanged cardiomediastinal silhouette and jose. No c onfluent airspace infiltrate, pleural effusion or pneumothorax. Impression: No acute radiographic abnormality of the chest. No relevant change from the 12/09/2020 comparison. Electronically signed by: KEILY NGUYEN MD (06/22/2021 10:15 AM) [facility]
[2021-06-22 10:24] LABS: INFLUENZA A PATIENT NEGATIVE (NEGATIVE); INFLUENZA B PATIENT NEGATIVE (NEGATIVE)
[2021-06-22] MEDS ORDERED: cefTRIAXone IV Push 1 GM VIAL. IVP ONE (10:30)
[2021-06-22 10:46] LABS: BASO % 1 % (0-3); EOS % 1 % (0-3); HEMATOCRIT 22.1 % (36.0-47.0); LYMPH # 1.7 x10^3/uL (1.0-4.8); LYMPH % 27 % (24-48); MEAN CORPUSCULAR HEMOGLOBIN 16 pg (25-35); MEAN CORPUSCULAR HGB CONC 28 g/dL (31-37); MEAN CORPUSCULAR VOLUME 57 fL (79-100); MONO # 0.4 x10^3/uL (0.0-1.1); MONO % 6 % (0-9); NEUT # 4.3 x10^3/uL (1.8-7.7); NEUT % 67 % (31-73); PLATELET COUNT 339 x10^3/uL (140-400); RED BLOOD COUNT 3.89 x10^6/uL (3.50-5.40); WHITE BLOOD COUNT 6.5 x10^3/uL (4.0-11.0)
[2021-06-22 10:51] LABS: CREATININE 0.8 mg/dL (0.6-1.0); GFR 104.9; POTASSIUM 4.2 mmol/L (3.5-5.1)
[2021-06-22 10:58] LABS: ALBUMIN 3.4 g/dL (3.4-5.0); ALBUMIN/GLOBULIN RATIO 0.8 (1.0-1.7); TOTAL BILIRUBIN 0.2 mg/dL (0.2-1.0); TOTAL PROTEIN 7.8 g/dL (6.4-8.2)
[2021-06-22 10:59] LABS: HEMOGLOBIN 6.2 g/dL (12.0-15.5)
[2021-06-22] MEDS ORDERED: ACETAMINOPHEN 325 MG TABLET. PO PRN (11:15)
[2021-06-22 12:04] LABS: PROTHROMBIN TIME PATIENT 13.9 SEC (11.7-14.0)
--- NOTE | 2021-06-22 12:23 | SSS ---
DATE OF SERVICE: 06/22/2021 ADMIT DATE: 06/22/2021 CHIEF COMPLAINT: Chest discomfort. HISTORY OF PRESENT ILLNESS: The patient is a pleasant 26-year-old overweight female who has a history of dysfunctional uterine bleeding and she has to be transfused periodically. Today, she presents with left-sided chest pain. We checked her hemoglobin, it is down to 6. I discussed the case with the ER physician. We are going to admit her and transfuse her. PAST MEDICAL HISTORY: Dysfunctional uterine bleeding, overweight. ALLERGIES: None. FAMILY HISTORY: Diabetes. SOCIAL HISTORY: She does not drink, smoke or take drugs. 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 MEDICATIONS: Reviewed. Please refer to the MRAD. REVIEW OF SYSTEMS: GENERAL: No history of weight change, weakness or fevers. SKIN: No bruising, hair changes or rashes. EYES: No blurred, double or loss of vision. NOSE AND THROAT: No history of nosebleeds, hoarseness or sore throat. HEART: No history of palpitations, chest pain or shortness of breath on exertion. LUNGS: Denies cough, hemoptysis, wheezing or shortness of breath. GASTROINTESTINAL: Denies changes in appetite, nausea, vomiting, diarrhea or constipation. GENITOURINARY: No history of frequency, urgency, hesitancy or nocturia. NEUROLOGIC: Denies history of numbness, tingling, tremor or weakness. PSYCHIATRIC: No history of panic, anxiety or depression. ENDOCRINE: No history of heat or cold intolerance, polyuria or polydipsia. EXTREMITIES: Denies muscle weakness, joint pain, pain on walking or stiffness. PHYSICAL EXAMINATION: VITALS: Within normal limits and are stable. GENERAL: No apparent distress. Alert and oriented. HEENT: Normal cephalic atraumatic, external auditory canals are patent. Eyes: Extraocular muscles are intact, pupils are equally round and reactive to light and accommodation. MUSCULOSKELETAL: Well developed, well nourished, good range of motion. ENDOCRINE: No thyromegaly was palpated. LYMPHATICS: No cervical chain or axillary nodes were noted. HEMATOPOIETIC: No bruising. NECK: Supple, no JVD, no thyromegaly was noted. LUNGS: Clear to auscultation in all lung auguste without rhonchi or wheezing. HEART: RRR, S1, S2 present. Peripheral pulses intact, no obvious murmurs were noted. ABDOMEN: Soft, nontender. Positive bowel sounds, no organomegaly, normal bowel sounds. EXTREMITIES: Without any cyanosis, clubbing, or edema. Pedal pulses intact, Homans sign is negative. NEUROLOGIC: Normal speech, normal tone. A and O x 3, moves all extremities, no obvious focal deficits. PSYCHIATRIC: Normal affect, normal mood. Stable. SKIN: No ulcerations or rashes, good skin turgor, no jaundice. VASCULAR: Good capillary refill, neurovascular bundle appears to be intact. LABORATORY DATA: Hemoglobin 6.2. ASSESSMENT AND PLAN: Dysfunctional uterine bleeding with severe anemia. The patient will be admitted. We will transfuse 2 units of packed red blood cells. I offered to consult BOILER ERECTOR, but she refuses to see them. States she has already seen too many doctors. Hope to discharge tomorrow if stable. YARIEL/ISIDRO DR: Isac TID: [id number]
[2021-06-22] MEDS ORDERED: NORE1TAB11 PO (13:21)
[2021-06-22] MEDS ORDERED: NITR100C6 PO (13:21)
--- NOTE | 2021-06-22 14:56 | PDOC ---
MANAGER STAFFING PROGRESS NOTE Date of Service: DATE: 06/22/21 TIME: 14:34 Subjective: Denies INSIDE SALES REPRESENTATIVE symptoms at present. LMP April. Menstrual cycle typically 60-90 days. Endorses hirsutism and acanthosis. Reports longstanding history of menorrhagia - onset at time of menarche. Last pelvic US at [facility] with subsequent uterine polyp removal - records requested. On further questioning, pt. states that she has trialed Mirena IUD for symptom management with intolerable pelvic/abdominal discomfort and removal of device 2/2. Discontinued LILLY two months ago 2/2 irregular/prolonged vaginal spotting/bleeding. Family history significant for menorrhagia with significant anemia, uterine fibroids. Mother with history of increased bleeding. Pt. denies history of increased bleeding following previous surgical procedure, has not previously had dental work compl eted, endorses increased bruising. Objective: Objective: Sitting upright in bed, independent with ADLs, in no apparent distress. Mother supportive at bedside. Pt. became increasingly anxious with discussion of INSIDE SALES REPRESENTATIVE history - reports frustration with chronic management of menorrhagia. Declines trial of alternate LILLY or NuvaRing for management. Declines progestin IUD. Pelvic exam deferred. Refuses pelvic US. Vital Signs: Vital Signs Date Time Temp Pulse Resp B/P (MAP) Pulse Ox O2 Delivery O2 Flow Rate FiO2 06/22/21 09:30 99.4 102 20 167/92 (117) 100 Room Air 99.4 Vital Signs Date Time Temp Pulse Resp B/P (MAP) Pulse Ox O2 Delivery O2 Flow Rate FiO2 06/22/21 13:05 Room Air 06/22/21 12:05 98.0 94 18 147/90 (109) 100 98.0 Labs: Laboratory Tests Test 06/22/21 09:45 06/22/21 09:53 06/22/21 09:59 06/22/21 10:25 Urine Collection Type Unknown Urine Color Yellow Urine Clarity Hazy Urine pH 6.0 (<5.0-8.0) Urine Specific [place] 1.025 (1.000-1.030) Urine Protein Negative mg/dL (NEG-TRACE) Urine Glucose (UA) Negative mg/dL (NEG) Urine Ketones (Stick) Negative mg/dL (NEG) Urine Blood Negative (NEG) Urine Nitrite Negative (NEG) Urine Bilirubin Negative (NEG) Urine Urobilinogen Dipstick 0.2 mg/dL (0.2 mg/dL) Urine Leukocyte Esterase Moderate (NEG) Urine RBC 0 /HPF (0-2) Urine WBC 11-20 /HPF (0-4) Urine Squamous Epithelial Cells Many /LPF Urine Bacteria Moderate /HPF (0-FEW) Urine Mucus Mod /LPF Urine Opiates Screen Neg (NEG) Urine Methadone Screen Neg (NEG) Urine Barbiturates Neg (NEG) Urine Phencyclidine Screen Neg (NEG) Urine Amphetamine/Methamphetamine Neg (NEG) Urine Benzodiazepines Screen Neg (NEG) Urine Cocaine Screen Neg (NEG) Urine Cannabinoids Screen Neg (NEG) Urine Ethyl Alcohol Neg (NEG) POC Urine HCG, Qualitative Hcg negative (Negative) Influenza Type A Antigen Negative (NEGATIVE) Influenza Type B Antigen Negative (NEGATIVE) SARS-CoV-2 Antigen (Rapid) Negative (NEGATIVE) White Blood Count 6.5 x10^3/uL (4.0-11.0) Red Blood Count 3.89 x10^6/uL (3.50-5.40) Hemoglobin 6.2 g/dL (12.0-15.5) *L Hematocrit 22.1 % (36.0-47.0) L Mean Corpuscular Volume 57 fL (79-100) L Mean Corpuscular Hemoglobin 16 pg (25-35) L Mean Corpuscular Hemoglobin Concent 28 g/dL (31-37) L Red Cell Distribution Width 21.0 % (11.5-14.5) H Platelet Count 339 x10^3/uL (140-400) Neutrophils (%) (Auto) 67 % (31-73) Lymphocytes (%) (Auto) 27 % (24-48) Monocytes (%) (Auto) 6 % (0-9) Eosinophils (%) (Auto) 1 % (0-3) Basophils (%) (Auto) 1 % (0-3) Neutrophils # (Auto) 4.3 x10^3/uL (1.8-7.7) Lymphocytes # (Auto) 1.7 x10^3/uL (1.0-4.8) Monocytes # (Auto) 0.4 x10^3/uL (0.0-1.1) Eosinophils # (Auto) 0.0 x10^3/uL (0.0-0.7) Basophils # (Auto) 0.0 x10^3/uL (0.0-0.2) Sodium Level 142 mmol/L (136-145) Potassium Level 4.2 mmol/L (3.5-5.1) Chloride Level 106 mmol/L (98-107) Carbon Dioxide Level 26 mmol/L (21-32) Anion Gap 10 (6-14) Blood Urea Nitrogen 8 mg/dL (7-20) Creatinine 0.8 mg/dL (0.6-1.0) Estimated GFR (Cockcroft-Gault) 104.9 BUN/Creatinine Ratio 10 (6-20) Glucose Level 89 mg/dL (70-99) Calcium Level 9.0 mg/dL (8.5-10.1) Magnesium Level 2.0 mg/dL (1.8-2.4) Iron Level 23 ug/dL (50-170) L Total Iron Binding Capacity 515 ug/dL (250-450) H Iron Saturation 4 % (15-34) L Ferritin 3 ng/mL (8-252) L Total Bilirubin 0.2 mg/dL (0.2-1.0) Aspartate Amino Transferase (AST) 36 U/L (15-37) Alanine Aminotransferase (ALT) 33 U/L (14-59) Alkaline Phosphatase 75 U/L (46-116) Troponin I High Sensitivity < 4 ng/L (4-50) L XE-Uqk-T-Type Natriuretic Peptide 51 pg/mL (0-124) Total Protein 7.8 g/dL (6.4-8.2) Albumin 3.4 g/dL (3.4-5.0) Albumin/Globulin Ratio 0.8 (1.0-1.7) L Lipase 59 U/L (73-393) L Test 06/22/21 11:35 06/22/21 13:30 Prothrombin Time 13.9 SEC (11.7-14.0) Prothrombin Time INR 1.1 (0.8-1.1) Activated Partial Thromboplast Time 35 SEC (24-38) Troponin I High Sensitivity 5 ng/L (4-50) Laboratory Tests 06/22/21 10:25 Laboratory Tests 06/22/21 10:25 Laboratory Tests 06/22/21 10:25 Physical Exam: GENERAL: No apparent distress. Alert and oriented. HEENT: Head normocephalic, atraumatic. NECK: Supple LUNGS: Clear to auscultation. HEART: RRR, S1, S2 present, pulses intact ABDOMEN: Soft, positive bowel sounds. EXTREMITIES: No cyanosis or edema. NEUROLOGIC: Normal speech, normal tone PSYCHIATRIC: Normal affect, normal mood. SKIN: No ulceration. Assessment & Plan: Discussed diagnostic criteria for PCOS, risks associated with prolonged amenorrhea to include increased incidence of endometrial CA. Management alternatives reviewed to include LILLY/NuvaRing - pt. declines at present, cyclic progestin challenge to induce menses q 2-3 months, and Lysteda PO with menses, pt. amenable. Labs pending for coagulopathies 2/2 onset of menorrhagia with menarche, family history of heavy bleeding, pt. report of bruising. Discussed f/u with PMG MANAGER STAFFING for continued management p discharge. Pt. and mother v/u of all. JESUS CAVAZOS CNM Jun 22, 2021 14:56
[2021-06-23 03:03] VITALS: BP 112/50
[2021-06-23 07:00] VITALS: BP 137/61
[2021-06-23 11:00] VITALS: BP 139/61
[2021-06-23 11:05] LABS: HEMATOCRIT 30.6 % (36.0-47.0); HEMOGLOBIN 9.5 g/dL (12.0-15.5)
--- NOTE | 2021-06-23 11:31 | PDOC ---
[employer] PROGRESS NOTE Date of Service DOS: DATE: 06/23/21 TIME: 11:27 Chief Complaint Chief Complaint Dysfunctional uterine bleeding Blood loss anemia Obesity History of Present Illness History of Present Illness 06/23/2021: Patient denies any uterine bleeding, bloody stools, black stools. Hemoglobin up to 9.5 from 6.2. She is requesting discharge today, states she feels well. Lab work is consistent with iron deficiency anemia due to possible DUB. She has is in the process of finding a PCP, recommend she do so within the next week or so if possible. Greater than 30 minutes was spent managing the discharge of this patient. Vitals/I&O Vitals/I&O: Vital Signs Date Time Temp Pulse Resp B/P (MAP) Pulse Ox O2 Delivery O2 Flow Rate FiO2 06/23/21 08:16 Room Air 06/23/21 07:00 98.0 75 12 137/61 (86) 91 98.0 I & O 06/22/21 06/22/21 06/23/21 15:00 23:00 07:00 Intake Total 750 ml Balance 750 ml Physical Exam General: Alert Heart: Regular rate Lungs: Clear Abdomen: Soft Extremities: No clubbing, No cyanosis Skin: No rashes Labs Labs: Laboratory Tests Test 06/22/21 11:35 06/22/21 13:30 06/23/21 10:32 Prothrombin Time 13.9 SEC (11.7-14.0) Prothromb Time International Ratio 1.1 (0.8-1.1) Activated Partial Thromboplast Time 35 SEC (24-38) Troponin I High Sensitivity 5 ng/L (4-50) Hemoglobin 9.5 g/dL (12.0-15.5) Hematocrit 30.6 % (36.0-47.0) Mean Corpuscular Hemoglobin Concent 31 g/dL (31-37) Assessment and Plan Assessmemt and Plan Problems Medical Problems: (1) Low hemoglobin Status: Acute Comment Review of Relevant I have reviewed the following items ismael (where applicable) has been applied. Justifications for Admission Other Justification VINICIO ZEPEDA MD Jun 23, 2021 11:31
--- NOTE | 2021-06-23 11:35 | PDOC3 ---
Discharge Summary Visit Information Date of Admission: Jun 22, 2021 Date of Discharge: Jun 23, 2021 Final Diagnosis Problems Medical Problems: (1) Low hemoglobin Status: Acute Brief Hospital Course Allergies Allergies Coded Allergies Type Severity Reaction Last Updated Verified No Known Drug Allergies 06/22/21 No Vital Signs Vital Signs Date Time Temp Pulse Resp B/P (MAP) Pulse Ox O2 Delivery O2 Flow Rate FiO2 06/23/21 08:16 Room Air 06/23/21 07:00 98.0 75 12 137/61 (86) 91 98.0 Lab Results Laboratory Tests Test 06/22/21 09:45 06/22/21 09:53 06/22/21 09:59 06/22/21 10:25 Urine Collection Type Unknown Urine Color Yellow Urine Clarity Hazy Urine pH 6.0 (<5.0-8.0) Urine Specific [place] 1.025 (1.000-1.030) Urine Protein Negative mg/dL (NEG-TRACE) Urine Glucose (UA) Negative mg/dL (NEG) Urine Ketones (Stick) Negative mg/dL (NEG) Urine Blood Negative (NEG) Urine Nitrite Negative (NEG) Urine Bilirubin Negative (NEG) Urine Urobilinogen Dipstick 0.2 mg/dL (0.2 mg/dL) Urine Leukocyte Esterase Moderate (NEG) Urine RBC 0 /HPF (0-2) Urine WBC 11-20 /HPF (0-4) Urine Squamous Epithelial Cells Many /LPF Urine Bacteria Moderate /HPF (0-FEW) Urine Mucus Mod /LPF Urine Opiates Screen Neg (NEG) Urine Methadone Screen Neg (NEG) Urine Barbiturates Neg (NEG) Urine Phencyclidine Screen Neg (NEG) Urine Amphetamine/Methamphetamine Neg (NEG) Urine Benzodiazepines Screen Neg (NEG) Urine Cocaine Screen Neg (NEG) Urine Cannabinoids Screen Neg (NEG) Urine Ethyl Alcohol Neg (NEG) Bedside Urine HCG, Qualitative Hcg negative (Negative) Influenza Type A Antigen Negative (NEGATIVE) Influenza Type B Antigen Negative (NEGATIVE) SARS-CoV-2 Antigen (Rapid) Negative (NEGATIVE) White Blood Count 6.5 x10^3/uL (4.0-11.0) Red Blood Count 3.89 x10^6/uL (3.50-5.40) Hemoglobin 6.2 g/dL (12.0-15.5) Hematocrit 22.1 % (36.0-47.0) Mean Corpuscular Volume 57 fL (79-100) Mean Corpuscular Hemoglobin 16 pg (25-35) Mean Corpuscular Hemoglobin Concent 28 g/dL (31-37) Red Cell Distribution Width 21.0 % (11.5-14.5) Platelet Count 339 x10^3/uL (140-400) Neutrophils (%) (Auto) 67 % (31-73) Lymphocytes (%) (Auto) 27 % (24-48) Monocytes (%) (Auto) 6 % (0-9) Eosinophils (%) (Auto) 1 % (0-3) Basophils (%) (Auto) 1 % (0-3) Neutrophils # (Auto) 4.3 x10^3/uL (1.8-7.7) Lymphocytes # (Auto) 1.7 x10^3/uL (1.0-4.8) Monocytes # (Auto) 0.4 x10^3/uL (0.0-1.1) Eosinophils # (Auto) 0.0 x10^3/uL (0.0-0.7) Basophils # (Auto) 0.0 x10^3/uL (0.0-0.2) Sodium Level 142 mmol/L (136-145) Potassium Level 4.2 mmol/L (3.5-5.1) Chloride Level 106 mmol/L (98-107) Carbon Dioxide Level 26 mmol/L (21-32) Anion Gap 10 (6-14) Blood Urea Nitrogen 8 mg/dL (7-20) Creatinine 0.8 mg/dL (0.6-1.0) Estimated GFR (Cockcroft-Gault) 104.9 BUN/Creatinine Ratio 10 (6-20) Glucose Level 89 mg/dL (70-99) Calcium Level 9.0 mg/dL (8.5-10.1) Magnesium Level 2.0 mg/dL (1.8-2.4) Iron Level 23 ug/dL (50-170) Total Iron Binding Capacity 515 ug/dL (250-450) Iron Saturation 4 % (15-34) Ferritin 3 ng/mL (8-252) Total Bilirubin 0.2 mg/dL (0.2-1.0) Aspartate Amino Transf (AST/SGOT) 36 U/L (15-37) Alanine Aminotransferase (ALT/SGPT) 33 U/L (14-59) Alkaline Phosphatase 75 U/L (46-116) Troponin I High Sensitivity < 4 ng/L (4-50) JV-Vrv-C-Type Natriuretic Peptide 51 pg/mL (0-124) Total Protein 7.8 g/dL (6.4-8.2) Albumin 3.4 g/dL (3.4-5.0) Albumin/Globulin Ratio 0.8 (1.0-1.7) Lipase 59 U/L (73-393) Test 06/22/21 11:35 06/22/21 13:30 06/23/21 10:32 Prothrombin Time 13.9 SEC (11.7-14.0) Prothromb Time International Ratio 1.1 (0.8-1.1) Activated Partial Thromboplast Time 35 SEC (24-38) Troponin I High Sensitivity 5 ng/L (4-50) Hemoglobin 9.5 g/dL (12.0-15.5) Hematocrit 30.6 % (36.0-47.0) Mean Corpuscular Hemoglobin Concent 31 g/dL (31-37) Laboratory Tests Test 06/22/21 11:35 06/22/21 13:30 06/23/21 10:32 Prothrombin Time 13.9 SEC (11.7-14.0) Prothromb Time International Ratio 1.1 (0.8-1.1) Activated Partial Thromboplast Time 35 SEC (24-38) Troponin I High Sensitivity 5 ng/L (4-50) Hemoglobin 9.5 g/dL (12.0-15.5) Hematocrit 30.6 % (36.0-47.0) Mean Corpuscular Hemoglobin Concent 31 g/dL (31-37) Brief Hospital Course Ms. Banks is a 26 old female who presented with chest pain and blood loss anemia. She has a history of dysfunctional uterine bleeding and labs on admis madie showed hemoglobin 6.2 and hematocrit 22.1. She was admitted and received 2 units of packed red blood cells. Her hemoglobin improved to 9.5 hematocrit 30.6. She was stable for discharge with instructions to establish PCP within the next 5 to 7 days. Discharge Information Condition at Discharge: Improved Disposition/Orders: D/C to Home Scheduled Nitrofurantoin Monohyd/M-Cryst (Nitrofurantoin Love-Mcr 100 Mg) 100 Mg Capsule, 1 CAP PO BID for UTI, (Reported) Entered as Reported by: MARGARET ROCHE on 06/22/211320 Last Action: New Order on 06/22/211320 by MARGARET ROCHE Noreth A-Et Estra/Fe Fumarate (Lo Loestrin Fe 1-10 Tablet) 1 Each Tablet, 1 TAB PO DAILY for control, (Reported) Entered as Reported by: MARGARET ROCHE on 06/22/211320 Last Action: New Order on 06/22/211320 by MARGARET ROCHE Scheduled PRN Naproxen (Naproxen) 375 Mg Tablet, 375 MG PO TID PRN PRN for PAIN, #20 Prescribed by: LIUDMILA RODRIGUEZ D.O. on 07/24/194 Justicifation of Admission Dx: Justifications for Admission: Justification of Admission Dx: Yes VINICIO ZEPEDA MD Jun 23, 2021 11:35
--- NOTE | 2021-06-23 13:07 | NUR ---
Pt left unit at approx 1300 by ambulation via private vehicle. Pt's IV removed without complication, VSS. Discharge paperwork discussed with pt-pt verbalizes understanding.
--- NOTE | 2021-06-23 13:16 | NUR ---
SW following. Discussed with RN, pt from home with family, room air, regular diet. CHEMICAL DEPENDENCY ATTENDANT following. Discharge order for home with self care. RN advised no SW needs.
== END 2021-06-23 13:08 | disposition home or self-care (01) | DRG 760 ==
LOC: ER 09:23 → 5 NORTH 11:35
PROVIDERS: ADMIT Internal Medicine; ATTEND Internal Medicine
PROC: 30233N1 Transfusion of Nonautologous Red Blood Cells into Peripheral Vein, Percutaneous Approach (ICD-10-PCS; principal; 2021-06-23)
DX: N92.0 Excessive and frequent menstruation with regular cycle (principal); Z68.43 Body mass index [BMI] 50.0-59.9, adult; D50.0 Iron deficiency anemia secondary to blood loss (chronic); N84.0 Polyp of corpus uteri; Z83.3 Family history of diabetes mellitus; E66.01 Morbid (severe) obesity due to excess calories; K21.9 Gastro-esophageal reflux disease without esophagitis; R07.89 Other chest pain
CPT/HCPCS: 36415; 36430; 71045; 80053; 80307; 81001; 81025; 82728; 83540; 83550; 83690; 83735; 83880; 84484; 85014; 85018; 85025; 85240; 85246; 85610; 85730; 86850; 86900; 86901; 86920; 87086; 87428; 87491; 87591; 96374; J0696; P9016; 99285-25; G0378